=== PATIENT | female | born 1955 | race Caucasian/White ===

== ENCOUNTER → 2017-09-23 | Outpatient (CLI) | payer OTHER ==
[~2017-09-23] MED LIST: ABILIFY5 MG PO; AMITRIPTYLINE100 MG PO; CELEXA40 MG PO; HYCODAN PO; KLONOPIN2 MG PO; LISINOPRIL-HCT1 EAC1 PO; NORCO 10-325 T1 EACH PO; PANTOPRAZOLE SO20 MG PO; RANITIDINE HCL300 M1 PO; ROBAXIN-750750 MG PO; SIMVASTATIN80 MG PO; TAMSULOSIN HCL0.4 MG PO; TESSALON PERLE100 MG PO; VIMOVO PO; XANAX0.5 MG PO
[2017-09-24 21:40] LABS: HEMOGLOBIN 14.9 g/dL (12.0-16.0); RED BLOOD COUNT 5.32 x10e6/uL (3.6-5.1)
[2017-09-24 21:41] LABS: EOSINOPHILS % 0.4 % (0.0-6.0); HEMATOCRIT 46.2 % (34.2-44.1); LYMPHOCYTES % 1.9 % (18.0-39.1); MEAN CORPUSCULAR HGB CONC 32.3 g/dL (31-35); MEAN CORPUSCULAR VOLUME 86.8 fL (81-99); MONOCYTES % 0.4 % (4.4-11.3); NEUTROPHILS % 2.8 % (38.7-80.0); PLATELET COUNT 155 x10e3/uL (140-360); RED CELL DISTRIBUTION WIDTH 46.9 % (11.7-14.4)
== END ==
LOC: NPA 17:00
PROVIDERS: ATTEND Internal Medicine
DX: R69 Illness, unspecified (principal)
CPT/HCPCS: 36415; 85025

== ENCOUNTER → 2017-11-29 | Day surgery (SDC) | payer OTHER ==
[~2017-11-29] MED LIST changes: +ADDERALL 30 MG30 MG PO; +ASPIR 8181 MG PO; +CARAFATE1 GM/10 ML PO; +FENTANYL CITRATE/PF 100MCG/2 ML INJ ONE; +FENTANYL1 EAC1 TOP; +GABAPENTIN300 MG PO; +HYOSCYAMINE SULFATE 0.5 MG/ML AMP ONE; +LIDOCAINE HCL 2% LOCAL INJ 5 ML SDV VIAL INJ ONE; +LUNESTA3 MG PO; +METOPROLOL TART50 MG PO; +MIDAZOLAM HCL 2 MG/2 ML VIAL ONE; +PROMETHAZINE HC25 M1 PO; +PROPOFOL IV EMULSION 10 MG/ML 50 ML VIAL ONE; +SERTRALINE HCL100 MG PO; +TRAZODONE HCL50 MG PO
--- OUTSIDE RECORDS SUMMARY | 2017-11-29 06:13 | XMS REPORT | Clinical Summary ---
Author Author [facility] Address Unknown Phone Unavailable Care Team Providers Care Manhole Stripper Name Role Phone Asked, Pcp PCP Unavailable Allergies No Known Allergies Current Medications Prescription Sig. Disp. Refills Start End Date Status Date ALPRAZolam (XANAX) 1 MG TK 1/2 TO 1 T PO TID PRF 2 07/28/20 Active tablet ANXIETY 17 amIODarone (PACERONE) 200 TK 2 TS PO QD 0 08/02/20 Active MG tablet 17 diclofenac (VOLTAREN) 1 % SOL 2 GRAMS TO BOTH HANDS 2 06/23/20 Active gel QID 17 ergocalciferol (VITAMIN TK 1 C PO ONCE WEEKLY 5 08/22/20 Active D2) 50,000 unit capsule 17 ALPRAZolam (XANAX) 1 MG TK 1/2 TO 1 T PO TID PRF 2 06/27/20 Active tablet ANXIETY 17 amIODarone (PACERONE) 200 TK 2 TS PO QD 0 06/22/20 Active MG tablet 17 benzonatate (TESSALON) 0 04/21/20 Active 100 MG capsule 17 chlorzoxazone (PARAFON TK 2 TS PO QID 1 06/08/20 Active FORTE) 500 mg tablet 17 dextroamphetamine-ampheta TK 1 T PO BID 0 07/09/20 Active mine (ADDERALL) 30 mg 17 tablet diclofenac (VOLTAREN) 1 % SOL 2 GRAMS TO BOTH HANDS 2 06/23/20 Active gel QID 17 doxycycline (VIBRAMYCIN) TK 1 C PO BID 0 04/28/20 Active 100 MG capsule 17 ergocalciferol (VITAMIN TK 1 C PO ONCE WEEKLY 5 06/27/20 Active D2) 50,000 unit capsule 17 eszopiclone (LUNESTA) 3 TK 1 T PO QHS PRF SLEEP 2 10/16/20 Active mg tablet 17 folic acid (FOLVITE) 1 MG TK 1 T PO QD 2 07/12/20 Active tablet 17 gabapentin (NEURONTIN) TK 3 CS PO TID 2 07/07/20 Active 300 mg capsule 17 HYDROcodone-acetaminophen TK 1 T PO Q 4 H PRN P 0 07/07/20 Active (NORCO) 10-325 mg per 17 tablet lidocaine (LIDODERM) 5 % 2 04/21/20 Active 17 OXYCONTIN 30 mg TAKE 2 TABLETS BY MOUTH 0 07/06/20 Active tablet,oral EVERY MORNING 1 AT 200 17 only,ext.rel.12 hr ER P.M. AND 1 AT 1000 P.M. tablet pantoprazole (PROTONIX) TK 1 T PO BID 5 06/08/20 Active 40 MG EC tablet 17 XARELTO 20 mg tablet TK 1 T PO QD 0 06/22/20 Active 17 sertraline (ZOLOFT) 100 TK 2 TS PO QAM 2 06/21/20 Active MG tablet 17 simvastatin (ZOCOR) 80 MG TK 1 T PO QPM 1 06/29/20 Active tablet 17 sucralfate (CARAFATE) 1 TK 1 T PO Q 6 H 3 05/14/20 Active gram tablet 17 terconazole (TERAZOL 7) IVB FOR 7 NTS UTD 0 04/20/20 Active 0.4 % vaginal cream 17 traZODone (DESYREL) 100 TK 4 TO 6 TS PO QHS 2 07/05/20 Active MG tablet 17 eszopiclone (LUNESTA) 3 TK 1 T PO QHS PRF SLEEP 0 08/08/20 Active mg tablet 17 folic acid (FOLVITE) 1 MG TK 1 T PO QD 2 08/22/20 Active tablet 17 furosemide (LASIX) 40 mg TK 1 T PO QAM 2 08/02/20 Active tablet 17 gabapentin (NEURONTIN) TK 3 CS PO TID 2 08/22/20 Active 300 mg capsule 17 HYDROcodone-acetaminophen 0 08/05/20 Active (NORCO) 10-325 mg per 17 tablet OXYCONTIN 30 mg TAKE 2 TABLETS BY MOUTH 0 08/02/20 Active tablet,oral EVERY MORNING , 1 TABLET 17 only,ext.rel.12 hr ER AT 2 PM, THEN 1 TABLET AT tablet 10PM pantoprazole (PROTONIX) TK 1 T PO BID 11 08/18/20 Active 40 MG EC tablet 17 XARELTO 20 mg tablet TK 1 T PO QD 0 08/02/20 Active 17 sertraline (ZOLOFT) 100 TK 2 TS PO QAM 2 08/18/20 Active MG tablet 17 simvastatin (ZOCOR) 80 MG TK 1 T PO QPM 0 08/18/20 Active tablet 17 sucralfate (CARAFATE) 1 TK 1 T PO Q 6 H 2 08/21/20 Active gram tablet 17 tamsulosin (FLOMAX) 0.4 TK 1 C PO 30 MINUTES 1 08/22/20 Active mg capsule,extended AFTER THE SAME MEAL QD 17 release 24hr traZODone (DESYREL) 100 TK UP TO 6 TS PO HS PRF 2 08/18/20 Active MG tablet SLEEP 17 dextroamphetamine-ampheta TK ONE T PO BID 0 08/18/20 Active mine (ADDERALL) 30 mg DIRECTED 17 tablet chlorzoxazone (PARAFON Take 500 mg by mouth 4 Active FORTE DSC) 500 mg tablet (four) times a day as needed for muscle spasms. promethazine (PHENERGAN) Insert 25 mg into the Active 25 MG suppository rectum every 6 (six) hours as needed for nausea or vomiting. ranitidine (ZANTAC) 150 Take 150 mg by mouth 2 Active MG tablet (two) times a day. lidocaine (LIDODERM) 5 % Place 1 patch on the skin Active daily. Remove & Discard patch within 12 hours or as directed by benzonatate (TESSALON) Take 100 mg by mouth 3 Active 100 MG capsule (three) times a day as needed for cough. lisinopril-hydrochlorothi TK 1 T PO D 1 06/21/20 07/23/20 Discontin azide 17 17 ued (PRINZIDE,ZESTORETIC) 20-25 mg per tablet metoprolol tartrate TK 1 T PO Q 12 H 2 06/21/20 07/23/20 Discontin (LOPRESSOR) 50 mg tablet 17 17 ued lisinopril-hydrochlorothi TK 1 T PO D 1 06/21/20 08/25/20 Discontin azide 17 17 ued (PRINZIDE,ZESTORETIC) 20-25 mg per tablet metoprolol tartrate TK 1 T PO Q 12 H 2 06/21/20 08/25/20 Discontin (LOPRESSOR) 50 mg tablet 17 17 ued Active Problems Problem Noted Date Syncope 07/21/2017 Encounters Date Type Specialty Care Team Description 08/27/2017 Hospital General Surgery DayMaximilian DPM Encounter 08/27/2017 Anesthesia General Surgery Luis Felipe Lynch MD Event 08/27/2017 Procedure Pass General Surgery 08/27/2017 Surgery General Surgery Day, Maximilian Lema DPM LAPIDUS BUNIONECTOMY, POSSIBLE BONE GRAFT & STAPLE FIXATION-RIGHT FOOT 08/25/2017 Pre-Admit Pre-Admission Testing Day, Maximilian Lema DPM Preop testing (Primary Testing Dx) Appointment 07/22/2017 Procedure Pass General Internal Medicine 07/21/2017 [facility] General Internal Medicine Davi Pan MD Near syncope (Primary Dx) - Encounter 07/23/2017 after 11/28/2016 Family History Medical History Relation Name Comments Cancer Brother Cancer Father Heart disease Father Hyperlipidemia Father Hypertension Father Hypertension Mother Relation Name Status Comments Brother Father Mother Social History Tobacco Use Types Packs/Day Years Used Date Former Smoker Cigarettes 0.5 40 Quit: 2011 Smokeless Tobacco: Never Used Tobacco Cessation: Counseling Given: No Alcohol Use Drinks/Week oz/Week Comments No Sex Assigned at Date Recorded Not on file Last Filed Vital Signs Vital Sign Reading Time Taken Blood Pressure 114/67 08/27/2017 10:05 AM EYEGLASS MAKER Pulse 67 08/27/2017 10:05 AM EYEGLASS [employer]KER Temperature 36.1 C (97 F) 08/27/2017 9:25 AM EYEGLASS MAKER Respiratory Rate 16 08/27/2017 10:05 AM EYEGLASS MAKER Oxygen Saturation 96% 08/27/2017 10:05 AM EYEGLASS MAKER Inhaled Oxygen - - Concentration Weight 60.8 kg (134 lb) 07/22/2017 11:00 AM CDT Height 149.9 cm (4' 11") 08/25/2017 2:50 PM EYEGLASS MAKER Body Mass Index 30.04 07/22/2017 11:00 AM CDT Plan of Treatment Health Maintenance Due Date Last Done Comments PAP SMEAR 1976 COLONOSCOPY 2005 MAMMOGRAM 2005 ZOSTER VACCINE 2015 INFLUENZA VACCINE 04/27/2017 Implants Implanted Type Area Gastroenterology Technician Device Expiration Model / Identifier Date Serial / Lot Allograft Cotton Wedge [id number] - IPM Right: ARMANDO 03/17/2022 [id number] IMPLANT Foot ORTHOPEDICS / Implanted: Qty: 1 on 08/27/2017 by DEVICES / Maximilian Nobles DPM [id number] Gosper Lapidus Plating Rs Step IPM Right: ARMANDO [id number] / 0mm - [id number] IMPLANT Foot ORTHOPEDICS / Implanted: Qty: 1 on 08/27/2017 by DEVICES VENDOR Maximilian Grier DPM NA Gosper Locking Screw 3.5mm X IPM Right: ARMANDO [id number] / 18mm - [id number] IMPLANT Foot ORTHOPEDICS / Implanted: Qty: 1 on 08/27/2017 by DEVICES VENDOR Maximilian Grier DPM NA Gosper Locking Screw 3.5mm X IPM Right: ARMANDO [id number] / 30mm - [id number] IMPLANT Foot ORTHOPEDICS / Implanted: Qty: 1 on 08/27/2017 by DEVICES VENDOR Maximilian Grier DPM NA Gosper Standard Screw 3mm X 18mm IPM Right: ARMANDO [id number] / - [id number] IMPLANT Foot ORTHOPEDICS / Implanted: Qty: 1 on 08/27/2017 by DEVICES VENDOR Maximilian Grier DPM NA Gosper Locking Screw 3.5mm X IPM Right: ARMANDO [id number] / 12mm - [id number] IMPLANT Foot ORTHOPEDICS / Implanted: Qty: 1 on 08/27/2017 by DEVICES VENDOR Maximilian Grier DPM NA Gosper Fixation Pin - [id number] IPM Right: ARMANDO [id number] Implanted: Qty: 1 on 08/27/2017 by IMPLANT Foot ORTHOPEDICS / Maximilian Noblse DPM DEVICES / VENDOR LOT NA Gosper Fixation Pin - [id number] IPM Right: ARMANDO [id number] Implanted: Qty: 1 on 08/27/2017 by IMPLANT Foot ORTHOPEDICS / Maximilian Nobles DPM DEVICES / VENDOR LOT NA Gosper Locking Screw 3.5mm X IPM ARMANDO [id number] / 24mm - [id number] IMPLANT ORTHOPEDICS / Implanted: Qty: 1 on 08/27/2017 by DEVICES Maximilian Nobles DPM Procedures Procedure Name Priority Date/Time Associated Diagnosis Comments LAPIDUS BUNIONECTOMY, 08/27/2017 Hallux rigidus of right POSSIBLE BONE GRAFT & 8:00 AM EYEGLASS MAKER foot STAPLE FIXATION-RIGHT FOOT Special Needs PRE-OP VISIT ON 07-29-2017 IL: 29.5STRYKE R PLATES, ARMANDO TRICARTICA L after 11/28/2016 Results * ECG Pre/Post Op (08/25/2017 3:15 PM) Component Value Ref Range Ventricular rate 88 Atrial rate 88 AR interval 148 QRSD interval 98 QT interval 422 QTC interval 510 P axis 1 24 QRS axis 1 26 T wave axis 26 EKG impression Normal sinus rhythm-Possible Left atrial enlargement-Prolonged QT-Abnormal ECG-In automated comparison with ECG of 30-JUL-2016 11:19,-QT has lengthened- Specimen Performing Laboratory [facility] [address] [place] [address] * Estimated GFR (08/25/2017 2:50 PM) Only the most recent of 2 results within the time period is included. Component Value Ref Range GFR Non Af Amer >90 mL/min/1.73 m2 GFR Af Amer >90 mL/min/1.73 m2 Comment: Chronic kidney disease: <60 mL/min/1.73m2 Kidney failure: <15 mL/min/1.73m2 The estimated GFR is calculated from the IDMS-traceable Modification of Diet in Renal Disease Equation. The accuracy of the calculation is poor when the creatinine is normal. Calculated values >90 mL/min/1.73m2 are not reported. This equation has not been validated in children (<18 years), women, the elderly (>70 years), or ethnic groups other than Caucasians and Americans. Specimen Performing Laboratory Plasma specimen [facility] [address] [place] [address] * CBC with platelet and differential (08/25/2017 2:50 PM) Only the most recent of 2 results within the time period is included. Component Value Ref Range WBC 15.3 (H) 4.2 - 11.0 k/uL RBC 3.81 (L) 4.04 - 5.86 m/uL HGB 10.8 (L) 11.5 - 15.3 g/dL HCT 33.2 (L) 34.0 - 45.0 % MCV 87.1 80.0 - 98.0 fL MCH 28.3 27.0 - 34.0 pg MCHC 32.5 31.5 - 36.5 g/dL RDW - SD 42.5 37.0 - 51.0 fL MPV 10.8 (H) 7.4 - 10.4 fL Platelet count 225 150 - 400 k/uL Nucleated RBC 0.00 /100 WBC Neutrophils 88.7 (H) 36.0 - 66.0 % Lymphocytes 6.9 (L) 24.0 - 44.0 % Monocytes 3.5 0.0 - 6.0 % Eosinophils 0.5 0.0 - 6.0 % Basophils 0.1 0.0 - 1.2 % Immature granulocytes 0.3 0.0 - 1.0 % Specimen Performing Laboratory Blood [facility] [address] [place] [address] [place] [address] * Basic metabolic panel (08/25/2017 2:50 PM) Component Value Ref Range Sodium 137 135 - 150 mEq/L Potassium 3.5 3.5 - 5.0 mEq/L Chloride 101 100 - 109 mEq/L CO2 32 24 - 32 mmol/L Anion gap 4 (L) 7 - 15 mEq/L Comment: Starting from December , anion gap calculation no longer incorporates potassium. Please note the change. BUN 12 7 - 18 mg/dL Creatinine 0.6 (L) 0.8 - 1.5 mg/dL Glucose 118 (H) 65 - 100 mg/dL Calcium 8.6 8.6 - 10.7 mg/dL Specimen Performing Laboratory Plasma specimen [facility] [address] [place] [address] [place] [address] * MRI Brain Wo Contrast (07/22/2017 11:02 PM) Specimen Performing Laboratory [facility] [address] [place] [address] Narrative EXAM: MRI BRAIN WO CONTRAST CLINICAL HISTORY: Altered Mental Status TECHNIQUE: Multiplanar and multisequence MRI imaging of the brain was obtained without contrast. COMPARISON:None. FINDINGS: No diffusion restriction to suggest acute infarct. Mild generalized brain parenchymal volume loss. There are scattered nonspecific T2/FLAIR hyperintense foci within the subcortical and periventricular white matter, likely reflective of chronic microangiopathic changes. No acute intracranial hemorrhage, mass, hydrocephalus, or extra-axial fluid collection identified. Although this examination is not optimized for the sella, a partially empty sella is suggested.. Midline structures are maintained. The major flow voids in the skull base are identified. Orbits are unremarkable. Paranasal sinuses are clear. Mastoid air cells are normally pneumatized. IMPRESSION: 1.Involutional changes are identified with no acute intracranial infarct. 2.Partially empty sella noted. [facility]-[id number] Procedure Note Hm Interface, Radiology Results Incoming - 07/22/2017 11:10 PM CDT EXAM: MRI BRAIN WO CONTRAST CLINICAL HISTORY: Altered Mental Status TECHNIQUE: Multiplanar and multisequence MRI imaging of the brain was obtained without contrast. COMPARISON: None. FINDINGS: No diffusion restriction to suggest acute infarct. Mild generalized brain parenchymal volume loss. There are scattered nonspecific T2/FLAIR hyperintense foci within the subcortical and periventricular white matter, likely reflective of chronic microangiopathic changes. No acute intracranial hemorrhage, mass, hydrocephalus, or extra-axial fluid collection identified. Although this examination is not optimized for the sella, a partially empty sella is suggested.. Midline structures are maintained. The major flow voids in the skull base are identified. Orbits are unremarkable. Paranasal sinuses are clear. Mastoid air cells are normally pneumatized. IMPRESSION: 1. Involutional changes are identified with no acute intracranial infarct. 2. Partially empty sella noted. [facility]-[id number] * Urinalysis screen and microscopy, with reflex to culture (07/22/2017 7:08 PM) Component Value Ref Range Specimen site Clean catch Color, UA Colorless Appearance, UA Clear Specific gravity, UA 1.005 1.001 - 1.035 pH, UA 7.0 5.0 - 8.5 Protein, UA Negative Negative Glucose, UA Negative Negative Ketones, UA Negative Negative Bilirubin, UA Negative Negative Blood, UA Trace (A) Negative Nitrite, UA Negative Negative Urobilinogen, UA Negative <2.0 Leukocyte esterase, UA Negative Negative WBC, UA <1 0 - 5 /HPF RBC, UA <1 0 - 5 /HPF Bacteria, UA None seen None seen Yeast, UA None seen Yeast with pseudohyphae, None seen UA Specimen Performing Laboratory Urine [facility] [address] [place] [address] * Urine drugs of abuse screen (07/22/2017 7:08 PM) Component Value Ref Range Amphetamine screen, urine NEG Barbiturate screen, urine NEG Benzodiazepine screen, POS urine Cocaine screen, urine NEG Methadone screen, urine NEG Opiates screen, urine POS Phencyclidine screen, NEG urine Cannabinoid screen, urine NEG Comment: Drug screen minimum concentration of detectability Amphetamines 1000 ng/mL Methamphetamines 1000 ng/mL Barbiturates 300 ng/mL Benzodiazepines 300 ng/mL Cocaine 300 ng/mL Methadone 3 00 ng/mL Opiates 300 ng/mL Phencyclidine 25 ng/mL Cannabinoids 50 ng/mL Tricyclics 1000 ng/mL Negative test results indicates presumptive evidence of lack of clinically significant drug concentration in this urine specimen. Positive test results are presumptive evidence of clinically significant drug concentration in this urine specimen. Testing performed for medical purposes only. Specimen Performing Laboratory Urine [facility] [address] [place] [address] * Urine culture (07/22/2017 7:08 PM) Component Value Ref Range Urine culture SEE COMMENTComment: Bacteriuria screen negative. Specimen Performing Laboratory Urine [facility] [address] [place] [address] * XR Knee 3 Vw Right (07/22/2017 2:20 PM) Specimen Performing Laboratory [facility] [address] [place] [address] Narrative EXAMINATION:XR KNEE 3 VW RIGHT CLINICAL HISTORY:KNEE TRAUMANO TENDERNESSNO EFFUSIONCAN WALK NO XRAY COMPARISON:None. IMPRESSION: There is a screw in the lateral femoral condyle. There are extensive degenerative changes in all compartments. There is a moderate knee joint effusion. [id number] Procedure Note Interface, Radiology Results Incoming - 07/22/2017 2:52 PM CDT EXAMINATION: XR KNEE 3 VW RIGHT CLINICAL HISTORY: KNEE TRAUMA NO TENDERNESS NO EFFUSION CAN WALK NO XRAY COMPARISON: None. IMPRESSION: There is a screw in the lateral femoral condyle. There are extensive degenerative changes in all compartments. There is a moderate knee joint effusion. [id number] * XR Hand 2 Vw Right (07/22/2017 2:19 PM) Specimen Performing Laboratory [facility] [address] [place] [address] Narrative EXAMINATION:XR HAND 2 VW RIGHT CLINICAL HISTORY: LIMITED MOVEMENTHAND COMPARISON:None. FINDINGS: Overlying cast obscures detail. No acute osseous abnormalities identified although the carpal bones are not well visualized. There are extensive degenerative changes in the first carpal-metacarpal and triscaphe joints. IMPRESSION: As above [id number] Procedure Note Interface, Radiology Results Incoming - 07/22/2017 2:53 PM CDT EXAMINATION: XR HAND 2 VW RIGHT CLINICAL HISTORY: LIMITED MOVEMENT HAND COMPARISON: None. FINDINGS: Overlying cast obscures detail. No acute osseous abnormalities identified although the carpal bones are not well visualized. There are extensive degenerative changes in the first carpal-metacarpal and triscaphe joints. IMPRESSION: As above [id number] * XR Foot 3+ Vw Right (07/22/2017 2:18 PM) Specimen Performing Laboratory [facility] [address] [place] [address] Narrative EXAMINATION:XR FOOT 3VW RIGHT CLINICAL HISTORY:FOOT TRAUMAPENETRATINGFOREIGN BODY SUSPECTEDNO XRAY, right ankle COMPARISON:None. 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 Soft tissue swelling along the first ray . Irregularity of the base of the distal phalanx of the first toe may be chronic or acute. No radiopaque foreign body. [id number] Procedure Note Interface, Radiology Results Incoming - 07/22/2017 2:49 PM CDT EXAMINATION: XR FOOT 3 VW RIGHT CLINICAL HISTORY: FOOT TRAUMA PENETRATING FOREIGN BODY SUSPECTED NO XRAY, right ankle COMPARISON: None. 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 Soft tissue swelling along the first ray . Irregularity of the base of the distal phalanx of the first toe may be chronic or acute. No radiopaque foreign body. [id number] * XR Cervical Spine 2 Or 3 Vw (07/22/2017 2:15 PM) Specimen Performing Laboratory [facility] [address] [place] [address] Narrative EXAMINATION:XR CERVICAL SPINE 2 OR 3 VW CLINICAL HISTORY:NECK PAINCERVICAL SPINE COMPARISON:None. FINDINGS: Three-view examination of the cervical spine performed. Prevertebral soft tissues well-maintained. Cervical lordosis intact. No compressive abnormality. No fracture or dislocation Considerable disc space narrowing C4-5 through C6-7. Moderate anterolateral osteophytes at these levels Diffuse bilateral Luschka joint hypertrophy in the lower cervical spine Odontoid intact. IMPRESSION: Moderate degenerative changes mid to lower cervical spine. No acute bony abnormality [facility]-[id number] Procedure Note Interface, Radiology Results Incoming - 07/22/2017 4:39 PM CDT EXAMINATION: XR CERVICAL SPINE 2 OR 3 VW CLINICAL HISTORY: NECK PAIN CERVICAL SPINE COMPARISON: None. FINDINGS: Three-view examination of the cervical spine performed. Prevertebral soft tissues well-maintained. Cervical lordosis intact. No compressive abnormality. No fracture or dislocation Considerable disc space narrowing C4-5 through C6-7. Moderate anterolateral osteophytes at these levels Diffuse bilateral Luschka joint hypertrophy in the lower cervical spine Odontoid intact. IMPRESSION: Moderate degenerative changes mid to lower cervical spine. No acute bony abnormality [facility]-[id number] * XR Chest 1 Vw Portable (07/22/2017 12:37 PM) Specimen Performing Laboratory [facility] [address] [place] [address] Narrative EXAMINATION: Portable chest x-ray CLINICAL HISTORY:Fever COMPARISON:None FINDINGS: The heart is normal in size. Mediastinum is within normal limits. There are degenerative changes in the dorsal spine. IMPRESSION: There are no infiltrates. There is no pleural fluid and no pneumothorax. [id number] Procedure Note Interface, Radiology Results Incoming - 07/22/2017 1:51 PM CDT EXAMINATION: Portable chest x-ray CLINICAL HISTORY: Fever COMPARISON: None FINDINGS: The heart is normal in size. Mediastinum is within normal limits. There are degenerative changes in the dorsal spine. IMPRESSION: There are no infiltrates. There is no pleural fluid and no pneumothorax. [id number] * ECG 12 lead (07/22/2017 11:08 AM) Component Value Ref Range Ventricular rate 77 Atrial rate 77 AR interval 150 QRSD interval 86 QT interval 404 QTC interval 457 P axis 1 29 QRS axis 1 5 T wave axis 14 EKG impression Normal sinus rhythm-Normal ECG-No previous ECGs available- Specimen Performing Laboratory [facility] [address] [place] [address] * Rheumatoid factor qual (07/21/2017 8:41 PM) Component Value Ref Range Rheumatoid factor qual Negative Negative Specimen Performing Laboratory Blood [facility] [address] [place] [address] * NAIMA titer (07/21/2017 8:41 PM) Component Value Ref Range NAIMA titer 1:320 (A) Not-Detected NAIMA titer 1 1:320 (A) Not-Detected NAIMA pattern Nucleolar (A) Not-Detected Specimen Performing Laboratory Blood [facility] DEPARTMENT OF PATHOLOGY AND GENOMIC MEDICINE [address] [place] [address] * Manual differential (07/21/2017 8:41 PM) Component Value Ref Range Manual differential PERFORMED Neutrophils 67.0 (H) 36.0 - 66.0 % Lymphocytes 22.0 (L) 24.0 - 44.0 % Monocytes 5.0 0.0 - 6.0 % Eosinophils 4.0 0.0 - 6.0 % Basophils 0.0 0.0 - 1.2 % Metamyelocytes 1 0 - 1 % Promyelocytes 0 0 - 1 % Reactive lymphocytes 1.0 Platelet slide review Sol adequate Anisocytosis 1+ Polychromasia 1+ Ovalocytes 1+ Enlarged platelets 1+ Elliptocytes Occasional Specimen Performing Laboratory [facility] [address] [place] [address] * Partial thromboplastin time, activated (07/21/2017 8:41 PM) Component Value Ref Range PTT 79.5 (H) 23.0 - 36.0 sec Comment: PTT therapeutic range for unfractionated heparin is 61.0-112.0 seconds which corresponds to Anti-Xa 0.3-0.7 U/ml. Note: Change in Panic Value The PTT Panic Value is changing from 110 sec. to 100 sec. due to new instrumentation and reagents. Correlation studies have been performed to validate this result. Specimen Performing Laboratory Blood [facility] [address] [place] [address] * Sedimentation rate (07/21/2017 8:41 PM) Component Value Ref Range Sedimentation rate 29 (H) 0 - 20 mm/hr Specimen Performing Laboratory Blood [facility] [address] [place] [address] * Prothrombin time with INR (07/21/2017 8:41 PM) Component Value Ref Range Prothrombin time 30.5 (H) 12.0 - 15.0 sec INR 2.85 (H) 0.92 - 1.12 Comment: For patients on anticoagulant therapy, reference ranges below: Indication: INR Value Treatment of Venous Thrombosis, 2.0-3.0 pulmonary emboli, or prophylaxis of a venous thrombosis, or systemic emboli. High dose, high risk patients 3.0-4.5 with mechanical valves. NOTE: INR values over 3.0 are sometimes associated with gastrointestinal hemorrhage, especially values over 4.0. Specimen Performing Laboratory Blood [facility] [address] [place] [address] [place] [address] * C-reactive protein (07/21/2017 8:41 PM) Component Value Ref Range CRP 6.00 (H) 0.00 - 0.50 mg/dL Specimen Performing Laboratory Plasma specimen [facility] PATHOLOGY AND GENOMIC MEDICINE [address] [place] [address] [place] [address] * NAIMA (07/21/2017 8:41 PM) Component Value Ref Range NAIMA screen Detected (A) Not-Detected Specimen Performing Laboratory Blood [facility] DEPARTMENT OF PATHOLOGY AND GENOMIC MEDICINE [address] [place] [id number] * Thyroid stimulating hormone (07/21/2017 8:41 PM) Component Value Ref Range TSH 5.10 (H) 0.38 - 4.82 uIU/mL Specimen Performing Laboratory Plasma specimen [facility] [place]OLOGY AND GENOMIC MEDICINE [address] [place] [address] [place] [address] * T4, free (07/21/2017 8:41 PM) Component Value Ref Range T4, free 1.03 0.70 - 1.61 ng/dL Specimen Performing Laboratory Plasma specimen [facility]OLOGY AND GENOMIC MEDICINE [address] [place] [address] [place] [address] * Vitamin B12 level (07/21/2017 8:41 PM) Component Value Ref Range Vitamin B12 1,294 (H) 231 - 931 pg/mL Comment: Significant overlap exists between normal and deficiency states. However, most patients with deficiencies will have Serum B12 <200 pg/mL. Specimen Performing Laboratory Serum [facility] [place] [facility]OLOGY AND GENOMIC MEDICINE [address] [place] [address] [place] [address] * Comprehensive metabolic panel (07/21/2017 8:41 PM) Component Value Ref Range Sodium 137 135 - 150 mEq/L Potassium 3.4 (L) 3.5 - 5.0 mEq/L Chloride 97 (L) 100 - 109 mEq/L CO2 30 24 - 32 mmol/L Anion gap 10 7 - 15 mEq/L Comment: Starting from December , anion gap calculation no longer incorporates potassium. Please note the change. BUN 18 7 - 18 mg/dL Creatinine 1.1 0.8 - 1.5 mg/dL Glucose 119 (H) 65 - 100 mg/dL Calcium 8.3 (L) 8.6 - 10.7 mg/dL Protein 6.4 6.3 - 8.2 g/dL Albumin 2.7 (L) 3.2 - 5.0 g/dL A/G ratio 0.7 0.7 - 3.8 Alkaline phosphatase 61 30 - 120 U/L AST 11 (L) 15 - 37 U/L ALT 19 (L) 30 - 65 U/L Total bilirubin 0.1 (L) 0.2 - 1.2 mg/dL Specimen Performing Laboratory Plasma specimen [facility]OLOGY AND GENOMIC MEDICINE [address] [place] [address] [place] [address] after 11/28/2016 Insurance Payer Benefit Subscriber ID Type Phone Address Plan / Group [facility] xxxxxxxx PPO [employer] [facility] xxxxxxxx PPO [employer] [facility] Personal/F Self 1955 Home: [address] [place] [address]
--- NOTE | 2017-11-29 10:54 | Operative Report ---
DATE OF PROCEDURE: November 29, 2017 REFERRING PHYSICIAN: Dr. Josiah Perez. PROCEDURES PERFORMED 1. Esophagogastroduodenoscopy with esophageal dilatation. 2. Colonoscopy with polypectomy. INDICATIONS FOR EGD: Dysphagia to solids, heartburn, indigestion. INDICATIONS FOR COLONOSCOPY: Colorectal cancer screening, personal history of colon polyps. MEDICATIONS: Patient was done under MAC. Please see anesthesiologist's note. PROCEDURE: With the patient in lateral decubitus position, the flexible fiberoptic Olympus gastroscope was introduced into the esophagus under direct visualization without any difficulty. There was some patchy erythema noted in the distal esophagus. A mild stricture was noted at the GE junction and that was dilated to size 52-Wallisian Ibrahim. The scope was then advanced with ease into the stomach, traversing a 5 cm sized hiatal hernia. Mucosa overlying the antrum revealed some patchy intense erythema and moderate edema and biopsies were obtained and sent to stain for H. pylori. Pylorus appeared to be of normal contour and shape, was intubated with ease, and the scope was advanced all the way to the second portion of the duodenum. A lipomatous-appearing polypoid lesion was noted in the distal second portion and that was biopsied. The mucosa overlying the duodenal bulb appeared to be within normal limits. The scope was then withdrawn back into the stomach and retroflexed and the previously described hiatal hernia was also noted in the retroflexed position. The fundus appeared to be within normal limits. The scope was then straightened out. The stomach was decompressed. The scope was subsequently withdrawn. Patient tolerated the procedure well. IMPRESSION 1. Distal esophagitis. 2. Esophageal stricture at gastroesophageal junction, dilated to size 52-Wallisian Ibrahim. 3. Rule out lipoma second portion of duodenum. PLAN: Followup histology. Continue Protonix 40 mg 1 p.o. a.c. b.i.d. Patient was then turned around. After adequate lubrication of the anal canal, a flexible fiberoptic Olympus colonoscope was inserted into the rectum with ease and advanced all the way to the cecum. The mucosa overlying the cecum appeared to be within normal limits. An approximately 8 mm sessile polypoid lesion was noted in the proximal ascending colon that was removed per snare electrocautery. The rest of the ascending, transverse, and descending appeared to be within normal limits. An approximately 1 cm polypoid lesion was removed per snare electrocautery from the sigmoid colon. The rectum appeared to be within normal limits. The scope was then retroflexed into the distal rectum and the area around the dentate line appeared to be within normal limits. The scope was then straightened out. The rectosigmoid area as well as the distal rectal area was decompressed. The scope was subsequently withdrawn. Patient tolerated the procedure well. IMPRESSION 1. Ascending colon polyp, snared. 2. Sigmoid colon polyp, snared. PLAN: Followup histology. Initiate high-fiber, low-fat diet. Initiate high-fiber supplement. Patient will need a followup colonoscopy in 3 years. Job#: [id number] VAS cc:Josiah Perez MD
== END | disposition home or self-care (01) ==
LOC: ENDO 06:11
PROVIDERS: ATTEND Internal Medicine Gastroenterology
DX: Z12.11 Encounter for screening for malignant neoplasm of colon (principal); D12.2 Benign neoplasm of ascending colon; D12.5 Benign neoplasm of sigmoid colon; K31.7 Polyp of stomach and duodenum; K22.2 Esophageal obstruction; K20.9 Esophagitis, unspecified; K21.9 Gastro-esophageal reflux disease without esophagitis; K58.9 Irritable bowel syndrome, unspecified; K44.9 Diaphragmatic hernia without obstruction or gangrene; I10 Essential (primary) hypertension; R00.1 Bradycardia, unspecified; I45.10 Unspecified right bundle-branch block; M06.9 Rheumatoid arthritis, unspecified; R53.1 Weakness; H91.90 Unspecified hearing loss, unspecified ear; F41.9 Anxiety disorder, unspecified; Z01.810 Encounter for preprocedural cardiovascular examination; Z79.82 Long term (current) use of aspirin; Z87.01 Personal history of pneumonia (recurrent); Z87.891 Personal history of nicotine dependence
CPT/HCPCS: 43239; 43450; 45385; 93005; J1980; J2001; J2250; 45378